=== PATIENT | male | born 1985 | race Caucasian/White ===

== ENCOUNTER 2020-01-23 09:23 | Emergency (ER) | payer SELFPAY ==
[~2020-01-23] VITALS: Ht 180.3 cm; Wt 122.7 kg
[2020-01-23] MEDS ORDERED: LOSA25TA71 PO (09:26)
[2020-01-23 09:31] VITALS: BP 118/57
== END 2020-01-23 10:50 | disposition home or self-care (01) ==
LOC: EMS 09:26
DX: Z03.818 Encounter for observation for suspected exposure to other biological agents ruled out (principal); F17.210 Nicotine dependence, cigarettes, uncomplicated
CPT/HCPCS: 99283; 99406; U0003

== ENCOUNTER 2020-02-13 16:13 | Emergency (ER) | payer OTHER, SELFPAY ==
[~2020-02-13] VITALS: Ht 180.3 cm; Wt 122.7 kg
[~2020-02-13 16:13] MED LIST: LOSA25TA71 PO
[2020-02-13 16:34] VITALS: BP 131/78
== END 2020-02-13 16:50 | disposition home or self-care (01) ==
LOC: EMS 16:25
DX: Z03.818 Encounter for observation for suspected exposure to other biological agents ruled out (principal); F17.210 Nicotine dependence, cigarettes, uncomplicated; I10 Essential (primary) hypertension
CPT/HCPCS: 99283; U0003